=== PATIENT | male | born 1955 | race Caucasian/White ===

== ENCOUNTER 2021-02-21 20:30 | Emergency (ER) | payer BC ==
[~2021-02-21] VITALS: Ht 172.7 cm; Wt 81.8 kg
[2021-02-21] MEDS ORDERED: PROPARACAINE OPHTH 0.5%, 15ML RIGHTEYE ONE (21:00)
[2021-02-21] MEDS ORDERED: FLUORESCEIN OPHTHALMIC 1 MG STRIP RIGHTEYE ONE (21:00)
[2021-02-21] MEDS ORDERED: FLUORESCEIN OPHTHALMIC 1 MG STRIP ONE (22:01)
--- NOTE | 2021-02-21 22:11 | NUR ---
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
--- NOTE | 2021-02-21 22:21 | NUR ---
ASSESSMENT MADE. CHART UP FOR MD TO SEE. C/O RIGHT EYE IRRITATION X 4-5 DAYS. REDNESS NOTED.
--- NOTE | 2021-02-21 23:09 | NUR ---
PA AT BEDSIDE.
--- NOTE | 2021-02-21 23:21 | NUR ---
PATIENT DISCHARGED WITH PRESCRIPTION AND INSTRUCTION. VERBALIZED UNDERSTANDING.
[2021-02-21 23:22] VITALS: BP 126/94
== END 2021-02-21 23:26 | disposition home or self-care (01) ==
LOC: ED 21:00
DX: H10.021 Other mucopurulent conjunctivitis, right eye (principal); H57.11 Ocular pain, right eye; I10 Essential (primary) hypertension
CPT/HCPCS: 99283